=== PATIENT | male | born 1955 | race Caucasian/White ===

== ENCOUNTER → 2018-06-13 | Outpatient (REF) | payer OTHER | LOC: M LAB LCGH 15:46 | PROVIDERS: ATTEND Surgery | DX: D12.2 Benign neoplasm of ascending colon (principal) ==

== ENCOUNTER → 2018-08-16 | Outpatient (CLI) | payer MEDICAID, OTHER | LOC: M SMT 14:50 | PROVIDERS: ATTEND Nurse Practitioner Family | DX: Z12.5 Encounter for screening for malignant neoplasm of prostate (principal) ==

== ENCOUNTER → 2018-10-10 | Outpatient (REF) | payer OTHER | LOC: M SMT 17:04 | PROVIDERS: ATTEND Urology | DX: N39.0 Urinary tract infection, site not specified (principal) ==

== ENCOUNTER → 2019-01-09 | Outpatient (REF) | payer OTHER | LOC: M SMT 16:53 | PROVIDERS: ATTEND Urology | DX: C67.9 Malignant neoplasm of bladder, unspecified (principal) ==

== ENCOUNTER → 2019-01-17 | Outpatient (CLI) | payer OTHER ==
--- NOTE | 2019-01-17 13:29 | REP ---
Prostate sonography: History: Elevated PSA. Sonographic findings: Trans rectal prostate sonography demonstrates unremarkable seminal vesicles. Prostate gland is heterogeneously enlarged with calcifications and cystic changes noted. Glandular dimensions are measured at 4.5 x 5.2 x 3.2 cm with a calculated glandular volume of 40.0 ml. There is a 1 cm hypoechoic area in the right mid lateral gland. Transrectal sonographic guidance is provided to Dr. Conteh who performed trans rectal ultrasound guided needle biopsy procedure . Electronically Signed by Nj Andrews MD 01/17/2019 01:20 P
== END ==
LOC: M SMT PRO 08:38
PROVIDERS: ATTEND Urology
DX: C61 Malignant neoplasm of prostate (principal)
CPT/HCPCS: 76872; 76942; G0416

== ENCOUNTER → 2019-06-16 | Outpatient (REF) | payer OTHER | LOC: M SMT 16:47 | PROVIDERS: ATTEND Urology | DX: C67.9 Malignant neoplasm of bladder, unspecified (principal) ==

== ENCOUNTER → 2020-04-09 | Outpatient (CLI) | payer OTHER ==
--- NOTE | 2020-04-09 12:03 | REPPI ---
INDICATION: ELEVATED PSA. COMPARISON: Comparison study January 17, 2019.. TECHNIQUE: Transrectal prostate sonography. Sonographic guidance. FINDINGS: Trans rectal prostate sonography demonstrates unremarkable seminal vesicles. Prostate gland is heterogeneously enlarged with calcifications and cystic changes noted. Glandular dimensions are measured at 4.9 x 3.1 x 5.2 cm with a calculated glandular volume of 41.6 ml. Transrectal sonographic guidance is provided to Dr. Conteh who performed trans rectal ultrasound guided needle biopsy procedure. IMPRESSION: Transrectal prostate ultrasound and sonographic guidance for biopsy. <Electronically signed by Michel Andrews > 04/09/20 1157
== END ==
LOC: M SMT PRO 08:50
PROVIDERS: ATTEND Urology
DX: R97.20 Elevated prostate specific antigen [PSA] (principal); C67.0 Malignant neoplasm of trigone of bladder

== ENCOUNTER → 2020-04-09 | Outpatient (REF) | payer OTHER | LOC: M SMT 11:54 | PROVIDERS: ATTEND Urology | DX: C67.9 Malignant neoplasm of bladder, unspecified (principal) | CPT/HCPCS: 88108; 88305; G0416 ==

== ENCOUNTER → 2020-07-29 | Outpatient (REF) | payer OTHER | LOC: M SMT 17:03 | PROVIDERS: ATTEND Urology | DX: C67.9 Malignant neoplasm of bladder, unspecified (principal) ==

== ENCOUNTER → 2020-11-08 | Outpatient (REF) | payer OTHER | LOC: M SMT 18:47 | PROVIDERS: ATTEND Urology | DX: C67.9 Malignant neoplasm of bladder, unspecified (principal) ==

== ENCOUNTER → 2021-06-10 | Outpatient (REF) | payer OTHER | LOC: M SMT 17:44 | PROVIDERS: ATTEND Urology | DX: C67.9 Malignant neoplasm of bladder, unspecified (principal) ==

== ENCOUNTER → 2021-07-01 | Outpatient (REF) | payer OTHER | LOC: M SMT PRO 13:00 | PROVIDERS: ATTEND Urology | DX: C61 Malignant neoplasm of prostate (principal) ==

== ENCOUNTER → 2022-01-05 | Outpatient (REF) | payer OTHER | LOC: M SMT 12:57 | PROVIDERS: ATTEND Urology | DX: C67.9 Malignant neoplasm of bladder, unspecified (principal) ==

== ENCOUNTER → 2023-01-11 | Outpatient (REF) | payer OTHER, MEDICAID | LOC: M SMT 09:50 | PROVIDERS: ATTEND Urology | DX: C67.9 Malignant neoplasm of bladder, unspecified (principal) ==

== ENCOUNTER → 2024-03-06 | Outpatient (REF) | payer OTHER, MEDICAID | LOC: M SMT 13:12 | PROVIDERS: ATTEND Urology | DX: C67.9 Malignant neoplasm of bladder, unspecified (principal) ==

== ENCOUNTER → 2025-03-05 | Outpatient (REF) | payer OTHER, MEDICAID, MEDICARE | LOC: M SMT 13:04 | PROVIDERS: ATTEND Urology | DX: C67.9 Malignant neoplasm of bladder, unspecified (principal) ==